=== PATIENT | female | born 1965 | race Caucasian/White ===

== ENCOUNTER 2024-09-10 17:14 | Emergency (ER) | payer BC ==
[2024-09-10] MEDS: Amoxicillin/Clavulanate K 875-125 MG Tab PO STA (19:28)
== END 2024-09-10 19:30 | disposition home or self-care (01) ==
LOC: MW.ED 17:14
DX: M27.2 Inflammatory conditions of jaws (principal); E03.9 Hypothyroidism, unspecified; Z75.8 Other problems related to medical facilities and other health care; Z79.899 Other long term (current) drug therapy; Z79.890 Hormone replacement therapy
CPT/HCPCS: 99283; A9270; 99282